=== PATIENT | female | born 2000 | race Hispanic/Latino ===

== ENCOUNTER 2021-10-04 13:49 | Emergency (ER) | payer SELFPAY ==
[2021-10-04] MEDS ORDERED: Ibuprofen 200 MG TAB ONE (15:31)
== END 2021-10-04 15:40 | disposition home or self-care (01) ==
LOC: ERS 13:49
DX: S63.601A Unspecified sprain of right thumb, initial encounter (principal); X50.0XXA Overexertion from strenuous movement or load, initial encounter